=== PATIENT | male | born 1990 | race African-American/Black ===

== ENCOUNTER 2017-08-23 16:03 | Emergency (ER) | payer OTHER ==
[~2017-08-23] VITALS: Ht 172.7 cm; Wt 123.0 kg
[~2017-08-23 16:03] MED LIST: KEPP500 PO
[2017-08-23 16:13] VITALS: BP 160/79
== END 2017-08-23 16:57 | disposition home or self-care (01) ==
LOC: ER 16:03
DX: A59.03 Trichomonal cystitis and urethritis (principal); R56.9 Unspecified convulsions; F17.200 Nicotine dependence, unspecified, uncomplicated
CPT/HCPCS: 99283